=== PATIENT | male | born 2000 | race Caucasian/White ===

== ENCOUNTER 2025-03-20 17:54 | Emergency (ER) | payer OTHER ==
[~2025-03-20] VITALS: Ht 167.6 cm; Wt 100.0 kg
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
[2025-03-20] MEDS: HYDROcodone/acetaminophen 5mg/325mg tablet PO ONE (18:35)
--- NOTE | 2025-03-20 19:00 | RADIOLOGY REPORT ---
EXAM: DI FOREARM,INCL.ONE JOINT CLINICAL HISTORY: ARM PAIN COMPARISON: None TECHNIQUE: DI FOREARM,INCL.ONE JOINT Findings/Impression: 2 views of the left forearm. There is no evidence of an acute fracture, dislocation, blastic, or lytic lesions. Age-indeterminate fracture of the distal radius Orthopedic plate and screw fixation of the distal radius No superficial soft tissue abnormalities.
[2025-03-20] MEDS ORDERED: HYDR-3965 PO (19:46)
[2025-03-20] MEDS ORDERED: NAPR-56 PO (19:46)
[2025-03-20] MEDS: HYDROcodone/acetaminophen 10/325mg tab PO ONE (19:47)
[2025-03-20] MEDS: naproxen 500mg tablet PO ONE (19:47)
[2025-03-20 20:06] VITALS: BP 118/72; PULSE 85; RESP 16; TEMP 97.9; O2SAT 98
== END 2025-03-20 20:09 | disposition home or self-care (01) ==
LOC: ER 17:55
DX: S52.92XA Unspecified fracture of left forearm, initial encounter for closed fracture (principal); V29.99XA Rider (driver) (passenger) of other motorcycle injured in unspecified traffic accident, initial encounter; Y93.89 Activity, other specified; Y92.89 Other specified places as the place of occurrence of the external cause; Y99.8 Other external cause status
CPT/HCPCS: 29125; 73090; 99284; A4565; A6449